=== PATIENT | female | born 1960 | race Caucasian/White ===

== ENCOUNTER 2019-03-20 08:41 | Day surgery (SDC) | payer BC, OTHER ==
[~2019-03-20] VITALS: Ht 162.6 cm; Wt 87.7 kg
[~2019-03-20 08:41] MED LIST: ASPIRIN 81M81 MG/TA2 PO; GLUCOPHAGE1000 MG PO; HCTZ 25MG TAB25 MG PO; LISINOPRIL; TENORMIN 5050 MG/TAB PO; ULTRAM 50MG TAB50 MG PO
[2019-03-20] MEDS ORDERED: SYNTHROID0.05 MG/TA (09:33)
[2019-03-20] MEDS ORDERED: MASON NATURAL2000 IU (09:35)
[2019-03-20] MEDS ORDERED: SYNTHROID0.05 MG/TA PO (09:37)
[2019-03-20] MEDS ORDERED: TYLENOL 500MG500 MG PO (09:38)
[2019-03-20] MEDS ORDERED: PRINIVIL40 MG PO (09:46)
--- NOTE | 2019-03-20 10:21 | NUR ---
Initial visit; Patient thanked Hosted Services Analyst for offering prayer prior to her 'procedure.' Hosted Services Analyst ana Mcmahan know Chaplains are always available at [place].
[2019-03-20 10:25] VITALS: BP 107/58; PULSE 65; TEMP 98.1
--- NOTE | 2019-03-20 10:25 | NUR ---
Pt to GI bay 7 via cart from [employer]. Pt drowsy, but awake. Pt ambulates to recliner with stand by assist. Pt denies pain or nausea. Muffin and coffee given per pt request. Son in room. Will continue to monitor. Call light within reach.
[2019-03-20] MEDS ORDERED: ULTRAM 50MG TAB50 MG PO (10:34)
[2019-03-20 10:40] VITALS: BP 101/60; PULSE 65
--- NOTE | 2019-03-20 10:40 | NUR ---
Pt continues to rest. Tolerating food and fluids without difficulties. Call light within reach.
[2019-03-20 10:55] VITALS: BP 91/67; PULSE 67
--- NOTE | 2019-03-20 10:55 | NUR ---
Pt continues to rest. Denies needs. Call light within reach.
[2019-03-20 11:10] VITALS: BP 106/51; PULSE 71
--- NOTE | 2019-03-20 11:10 | NUR ---
Discharge instructions reviewed. Pt voices understanding. 100ml left in IV bag. Will infuse rest of bag as blood pressure is still low. Pt awake and visiting with son. Denies needs. Call light within reach.
--- NOTE | 2019-03-20 11:38 | NUR ---
IV fluids complete. IV site discontinued with all parts intact. Pt escorted to private car via wheel chair. Pt accompanied home by her son.
== END 2019-03-20 11:39 | disposition home or self-care (01) ==
LOC: SDCO 08:41
DX: Z12.11 Encounter for screening for malignant neoplasm of colon (principal); I10 Essential (primary) hypertension; E11.9 Type 2 diabetes mellitus without complications; Z86.010 Personal history of colon polyps
CPT/HCPCS: J2250; J2405; J3010; J7030

== ENCOUNTER 2020-02-27 16:48 | Emergency (ER) | payer BC, OTHER ==
[~2020-02-27] VITALS: Ht 162.6 cm; Wt 84.5 kg
[~2020-02-27 16:48] MED LIST changes: +MASON NATURAL2000 IU; +PRINIVIL40 MG PO; +SYNTHROID0.05 MG/TA; +SYNTHROID0.05 MG/TA PO; +TYLENOL 500MG500 MG PO
[2020-02-27 17:37] VITALS: TEMP 99.7
[2020-02-27 18:30] VITALS: BP 109/65; PULSE 76
== END 2020-02-27 18:30 | disposition home or self-care (01) ==
LOC: COL.ER 16:48
DX: J06.9 Acute upper respiratory infection, unspecified (principal); Z20.828 Contact with and (suspected) exposure to other viral communicable diseases

== ENCOUNTER → 2022-02-20 | Outpatient (CLI) | payer BC, OTHER | LOC: COL.PUL 13:00 → COL.RAD 13:09 → COL.PUL 13:09 | DX: R06.02 Shortness of breath (principal) | CPT/HCPCS: J7674 ==